=== PATIENT | female | born 1995 | race African-American/Black ===

== ENCOUNTER 2020-09-25 18:27 | Emergency (ER) | payer BC, SELFPAY ==
--- NOTE | ~2020-09-25 | XR_ITS ---
EXAMINATION: XR chest 2V EXAM DATE: 09/25/2020 19:44 INDICATION: Shortness of breath and chest tightness. History of asthma. TECHNIQUE: Frontal and lateral projections of the chest obtained and reviewed. There is no prior lawrence dy for comparison. FINDINGS: Mild hyperinflation. The lungs are clear. There are no pleural effusions. The cardiomedi astinal silhouette is within normal limits. There is no pneumothorax suspected. The bones and soft tissues are unremarkable. IMPRESSION: Mild hyperinflation. Clear lungs. Reviewed, dictated and finalized at location A.
--- NOTE | ~2020-09-25 | NM_ITS ---
EXAMINATION: NM pulmonary perfusion EXAM DATE: 09/25/2020 22:00 INDICATION: chest tightness, rule out PE . TECHNIQUE: A perfusion lung scan was performed. The patient was injected with 3 mCi technetium 99m M AA and imaged. Modified PIOPED 2 criteria used for interpretation of perfusion without ventilation st udy (recent chest x-ray instead for comparison). Correlation is made to Chest x-ray same day. FINDINGS: There is homogeneous perfusion throughout the lungs, no defects. IMPRESSION: Normal perfusion scan. Reviewed, dictated and finalized at location A. IMPRESSION: Normal perfusion scan.
[2020-09-25 18:38] VITALS: BP 134/58; PULSE 70; RESP 16; TEMP 36.6; O2SAT 100
--- NOTE | 2020-09-25 18:39 | PC.NURSE ---
talked to ob charge Lakisha. asked us to hydrate pt and keep them posted if abd pain increase in intensity or frequency. may be able to come monitor pt in ed or we can send pt to their dept s/p our evaluation.
--- NOTE | 2020-09-25 18:43 | ECG_ITS ---
Measurements Intervals [place] Rate: 62 P: 37 OR: 124 QRS: 56 QRSD: 81 T: 29 QT: 375 QTc: 383 Interpretive Statements SINUS RHYTHM NORMAL ECG Electronically Signed On 09-26-2020 6:28:11 CDT by Saul Jay D.O.
[2020-09-25 19:00] LABS: Basophils Percent Auto 0.3 % (0.2-1.2); Eosinophils Absolute Auto 0.1 K/mm3 (0-0.3); Immature Granulocyte Absolute 0.04 K/mm3 (0.00-0.031); Immature Granulocyte Percent A 0.7 % (0-0.5); Lymphocytes Percent Auto 27.7 % (18.3-44.2); Mean Corpuscular HGB Conc 34.3 g/dl (32-36); Mean Corpuscular Hemoglobin 31.6 pg (26-34); Mean Corpuscular Volume 92.1 fl (80-100); Mean Platelet Volume 9.6 fl (7.4-10.4); Monocytes Absolute Auto 0.5 K/mm3 (0.1-0.6); Monocytes Percent Auto 7.7 % (2.6-8.5); Neutrophils Absolute Auto 3.8 K/mm3 (1.3-6.7); Neutrophils Percent Auto 62.6 % (45.5-73.1); Platelet Count Result 275 k/mm3 (150-375); Red Cell Distribution Width 11.7 % (11.5-14.5); White Blood Count 6.1 K/mm3 (4.5-10.0)
[2020-09-25 19:05] VITALS: PULSE 90; RESP 20; O2SAT 100
[2020-09-25 19:07] LABS: Anion Gap 8 mmol/L (8-16); Blood Urea Nitrogen 9 mg/dL (7-17); Calcium 9.4 mg/dL (8.4-10.2); Carbon Dioxide 22 mmol/L (22-30); Chloride 105 mmol/L (98-107); Estimated CRCL calculation 121 ml/min; Estimated Glomerular Filt Rate > 60; Glucose 90 mg/dL (65-105); Potassium 3.7 mmol/L (3.4-5.0); Sodium 135 mmol/L (137-145)
[2020-09-25 19:15] VITALS: PULSE 66; PULSE 71; RESP 18; O2SAT 100
[2020-09-25 19:19] LABS: Troponin I < 0.012 ng/mL (0.000-0.034)
--- NOTE | 2020-09-25 19:32 | ED.CHESTPAIN ---
HPI - Chest Pain General Chief Complaint: Chest Pain Stated Complaint: 30 weeks /abd cramping/sob Time Seen by Provider: 09/25/20 19:01 Source: patient and RN notes reviewed Mode of arrival: ambulatory Limitations: no limitations History of Present Illness HPI narrative: This is a 25 year old female approximately 30 weeks GA who presents for evaluation of chest tightness and shortness of breath. She states last night she developed midsternal chest tightness. Her chest tightness has continue today, and she has intermittent shortness of breath. She describes her shortness of breath as the need to take a deep breathing occasionally. She thinks her tightness is likely due to news that she received yesterday while getting her fetus evaluation. She was told that her baby is underweight and that has her concerned. She also reports intermittent left upper and right lower abdominal pain that last 2 minutes She no longer has abdominal pain. She denies fever, chills, cough, URI symptom, leg swelling calf pain. She denies history PE, DVT as well. Related Data Home Medications Medication Instructions Recorded Confirmed prenat.vits,aamir,aqi-opsv-olkno 1 tablet PO DAILY 08/16/20 Allergies Allergy/AdvReac Type Severity Reaction Status Date / Time No Known Allergies Allergy Verified 09/25/20 21:14 Review of Systems Review of Systems: All systems reviewed & are unremarkable except as noted in HPI and below PMFSH Past Medical History Medical History Asthma last attack age 18, no hospitalizations or intubations Family History Family History Mother Asthma Sibling Asthma Grandparent Asthma Social History Social History Smoking status: Never smoker Alcohol intake: former Substance use: never Exam Const: General: no acute distress and alert Orientation/consciousness: patient oriented x3 Eyes: EOM: EOMs intact bilaterally Chest: Chest palpation & inspection: normal inspection of the chest Resp: Effort & Inspection: normal respiratory effort and no retractions Auscultation: clear to auscultation bilaterally Cardio: Rate: regular rate Rhythm: regular rhythm Heart sounds: no murmurs GI: GI Palp: Yes Soft to palpation, No Tenderness to palpation present (GI) and No Guarding due to palpation present (GI) Auscultation: normal bowel sounds Skin: General skin exam: normal color Rashes: no rashes Neuro: General: patient oriented x3, moves all extremities and CN's II-XI intact bilaterally Psych: Mental Status: mental status grossly normal Affect: normal affect Course Reevaluation(s) Reevaluation #1: Patient has been resting in ER comfortable. She has not complained of abdominal pain. She was given 1 L IVF. Her labs are unremarkable. I spoke with Dr. Maria who states patient can follow up in clinic tomorrow afternoon. I think her chest tightness and shortness of breath may be related to anxiety. She will be started on antibiotics for abnormal urinalysis Date: 09/25/20 Time: 22:30 Vital Signs Vital signs: Vital Signs Temperature 98 F 09/25/20 18:38 Pulse Rate 70 09/25/20 18:38 Respiratory Rate 16 09/25/20 18:38 Blood Pressure 134/58 L 09/25/20 18:38 Pulse Oximetry 100 09/25/20 18:38 Temperature 98 F 09/25/20 18:38 Pulse Rate 60 09/25/20 22:46 Respiratory Rate 18 09/25/20 22:46 Blood Pressure 117/67 09/25/20 22:46 Pulse Oximetry 100 09/25/20 22:46 MDM - Chest Pain Medical Records Data Attestation: I reviewed the patient's medical records. Lab Data Attestation: I reviewed the patient's lab results. Result diagrams: 09/25/20 18:51 09/25/20 18:51 Labs: Lab Results 09/25/20 09/25/20 09/25/20 Range/Units 18:49 18:50 18:51 WB
[2020-09-25 19:52] LABS: Alanine Aminotransferase 17 U/L (4-35); Albumin Level 3.9 g/dL (3.5-5.1); Alkaline Phosphatase 109 U/L (38-126); Aspartate Amino Transferase 31 U/L (14-36); Bilirubin,Total 0.6 mg/dL (0.2-1.3); Lipase 77 U/L (23-300)
[2020-09-25 20:01] LABS: Prothrombin Time 13.2 Seconds (11.1-14.7)
[2020-09-25 20:02] LABS: Partial Thromboplastin Time 29.4 SECONDS (22.3-36.8)
[2020-09-25 20:20] LABS: D Dimer 1.12 ug/mL (<0.48)
[2020-09-25] MEDS: LACTATED RINGERS 1,000 ML 999 ML IV CONT (21:12)
[2020-09-25 21:14] VITALS: BP 105/63; PULSE 62; RESP 19; O2SAT 100
[2020-09-25 21:46] LABS: Add Urine Microscopic? YES; Appearance Urine Cloudy (Clear); Bacteria Urine Trace /hpf; Bilirubin Urine Negative (Negative); Blood Urine Negative (Negative); Color Urine Yellow (Yellow); Glucose Urine UA Negative (Negative); Ketones Urine Negative (Negative); Leukocyte Esterase Ur 2+ LEU/UL (Negative); Mucus Urine Rare /lpf; Nitrate Urine Negative (Negative); Protein Urine Negative (Negative); RBC Urine 0-2 /hpf (0-2); Specific Grav Ur 1.025 (1.001-1.035); Squamous Epithelial Cell Urine Moderate /hpf (Few); Urobilinogen Urine Negative mg/dL (<2.0); WBC Urine 16-20 /hpf
[2020-09-25 22:33] LABS: Troponin I < 0.012 ng/mL (0.000-0.034)
[2020-09-25 22:46] VITALS: BP 117/67; PULSE 60; RESP 18; O2SAT 100
== END 2020-09-25 22:46 | disposition home or self-care (01) ==
PROVIDERS: Emergency Medicine; Emergency Provider General Practice
DX: O23.43 Unspecified infection of urinary tract in pregnancy, third trimester (principal); Z3A.30 30 weeks gestation of pregnancy; O26.893 Other specified pregnancy related conditions, third trimester; R07.9 Chest pain, unspecified; R10.9 Unspecified abdominal pain
CPT/HCPCS: 36415; 71046; 78580; 80048; 80076; 81001; 83690; 84484; 85025; 85380; 85610; 85730; 87086; 93005; 96360; 99284; A9540; J7120

== ENCOUNTER 2020-10-13 10:28 | Outpatient (CLI) | payer BC, SELFPAY ==
[2020-10-13 12:08] LABS: Basophils Percent Auto 0.2 % (0.2-1.2); Eosinophils Absolute Auto 0.1 K/mm3 (0-0.3); Hematocrit 34.6 % (37.0-47.0); Hemoglobin 11.6 g/dL (12.0-15.0); Immature Granulocyte Absolute 0.04 K/mm3 (0.00-0.031); Immature Granulocyte Percent A 0.6 % (0-0.5); Lymphocytes Absolute Auto 1.29 K/mm3 (0.9-3.2); Lymphocytes Percent Auto 20.9 % (18.3-44.2); Mean Corpuscular HGB Conc 33.5 g/dl (32-36); Mean Corpuscular Hemoglobin 31.4 pg (26-34); Mean Corpuscular Volume 93.5 fl (80-100); Mean Platelet Volume 9.7 fl (7.4-10.4); Monocytes Absolute Auto 0.4 K/mm3 (0.1-0.6); Monocytes Percent Auto 6.5 % (2.6-8.5); Neutrophils Absolute Auto 4.4 K/mm3 (1.3-6.7); Neutrophils Percent Auto 70.8 % (45.5-73.1); Platelet Count Result 247 k/mm3 (150-375); Red Cell Distribution Width 11.8 % (11.5-14.5); White Blood Count 6.2 K/mm3 (4.5-10.0)
[2020-10-13 12:15] LABS: Glucose 1 Hour PP 50gm Dose 113 mg/dL
[2020-10-13 13:18] LABS: HIV 1/2 Ab P24 Ag Result Negative (Negative)
[2020-10-15 08:05] LABS: Rapid Plasma Reagin Non-Reactive (NonReactive)
== END 2020-10-13 10:29 | disposition home or self-care (01) ==
PROVIDERS: Visit Provider Obstetrics & Gynecology
DX: Z34.90 Encounter for supervision of normal pregnancy, unspecified, unspecified trimester (principal)
CPT/HCPCS: 36415; 82947; 85025; 86592; 86703; 86850; 86900; 86901; G0432

== ENCOUNTER 2020-10-26 12:37 | Outpatient (RCR) | payer BC, SELFPAY ==
[2020-10-25] MEDS: BETAMETHASONE SOD PHOS/ACETATE 30 MG/5 ML VIAL 12 MG IM (12:30)
[2020-10-26] MEDS: BETAMETHASONE SOD PHOS/ACETATE 30 MG/5 ML VIAL 12 MG IM (13:31)
== END 2020-11-06 09:07 | disposition home or self-care (01) ==
LOC: ANHOBOP 12:37
PROVIDERS: Visit Provider Student in an Organized Health Care Education/Training Program
DX: O36.8990 Maternal care for other specified fetal problems, unspecified trimester, not applicable or unspecified (principal); Z3A.00 Weeks of gestation of pregnancy not specified
CPT/HCPCS: 59025; 96372; J0702

== ENCOUNTER 2020-10-26 12:37 | Outpatient (RCR) | payer BC, SELFPAY ==
[2020-10-26 13:41] VITALS: BP 106/63; PULSE 66
== END 2020-11-28 10:05 | disposition home or self-care (01) ==
LOC: ANHOBOP 12:37
PROVIDERS: Visit Provider Student in an Organized Health Care Education/Training Program
DX: O36.5930 Maternal care for other known or suspected poor fetal growth, third trimester, not applicable or unspecified (principal); Z3A.34 34 weeks gestation of pregnancy
CPT/HCPCS: 59025

== ENCOUNTER 2020-10-26 12:37 | Outpatient (RCR) | payer BC, SELFPAY ==
--- NOTE | 2020-10-25 11:00 | OBADM ---
This patient, Linsey Gold, admitted to the OB room for observation. Patient/family oriented to hospital policies and general routines including ID bracelet, bed and alarms, visiting hours, pain management, procedures, bathroom and other care routines, personal items, smoking policy, room service/diet, and visiting hours. Patient/Family are encouraged to report perceived risks to care and to ask questions if they do not understand what they are told or what they should do.
--- NOTE | 2020-10-25 11:36 | PC.NURSE ---
Dr Maria updated on FHt's and no decels noted. Continue to watch patient for a few more hours.
== END 2020-10-29 08:21 | disposition home or self-care (01) ==
LOC: ANHOBOP 12:37
PROVIDERS: Visit Provider Student in an Organized Health Care Education/Training Program
DX: O36.8390 Maternal care for abnormalities of the fetal heart rate or rhythm, unspecified trimester, not applicable or unspecified (principal); Z3A.00 Weeks of gestation of pregnancy not specified
CPT/HCPCS: 99199

== ENCOUNTER 2020-11-05 09:03 | Observation (INO) | payer BC, SELFPAY ==
--- NOTE | 2020-11-05 09:03 | OBADM ---
This patient, Linsey Gold, admitted to the OB room OB Post [facility] for observation. Patient/family oriented to hospital policies and general routines including ID bracelet, bed and alarms, visiting hours, pain management, procedures, bathroom and other care routines, personal items, smoking policy, room service/diet, and visiting hours. Patient/Family are encouraged to report perceived risks to care and to ask questions if they do not understand what they are told or what they should do.
[2020-11-05 09:22] VITALS: BP 114/70; PULSE 79
[2020-11-05 09:23] VITALS: TEMP 36.7
[2020-11-05 09:47] LABS: Add Urine Microscopic? YES; Appearance Urine Cloudy (Clear); Bilirubin Urine Negative (Negative); Blood Urine 1+ (Negative); Color Urine Yellow (Yellow); Glucose Urine UA Negative (Negative); Ketones Urine Negative (Negative); Leukocyte Esterase Ur 3+ LEU/UL (Negative); Mucus Urine Rare /lpf; Nitrate Urine Negative (Negative); Protein Urine Negative (Negative); RBC Urine 0-2 /hpf (0-2); Specific Grav Ur 1.016 (1.001-1.035); Squamous Epithelial Cell Urine Many /hpf (Few); Urobilinogen Urine Negative mg/dL (<2.0); WBC Urine 21-30 /hpf
--- NOTE | 2020-11-05 10:00 | PC.NURSE ---
Updated Dr. Sanz on maternal and assessments. VSS. UA results given, Urine sent for culture. Discharge orders received. Patient to follow-up with Dr. Maria as scheduled.
[2020-11-05 10:10] VITALS: TEMP 36.7
--- NOTE | 2020-11-14 15:07 | P.PNOB_ITS ---
OB - Triage/Final Diagnosis Visit Information Comments/Additional reasons for admission: I have assessed the risk for this patient, Linsey Gold, and determined that she would benefit from observation care. Evaluation Laboratory results: Laboratory Tests 11/05/20 09:35 Urine Color Yellow Urine Appearance Cloudy H Urine pH 6.0 Ur Specific [place] 1.016 Urine Protein Negative Urine Glucose (UA) Negative Urine Ketones Negative Ur Blood (Man) 1+ H Urine Nitrate Negative Urine Bilirubin Negative Urine Urobilinogen Negative Leukocyte Esterase Rfl 3+ H Urine RBC 0-2 Urine WBC 21-30 H Ur Squamous Epith Cells Many H Urine Mucus Rare Final Diagnosis (1) Abdominal pain affecting : Code(s): O26.899 - Other specified related conditions, unspecified trimester; R10.9 - Unspecified abdominal pain Status: Acute
== END 2020-11-05 10:07 | disposition home or self-care (01) ==
PROVIDERS: Admitting Provider Student in an Organized Health Care Education/Training Program; Visit Provider Obstetrics & Gynecology
DX: O26.893 Other specified pregnancy related conditions, third trimester (principal); R10.9 Unspecified abdominal pain; Z3A.35 35 weeks gestation of pregnancy
CPT/HCPCS: 81001; 87086; G0378; G0379

== ENCOUNTER 2020-11-14 08:28 | Outpatient (CLI) | payer BC, SELFPAY ==
[2020-11-14 11:16] LABS: Vitamin D 25 Hydroxy 22.1 ng/mL
[2020-11-14 11:47] LABS: Hepatitis C Virus Antibody Negative (Negative)
== END 2020-11-14 08:29 | disposition home or self-care (01) ==
PROVIDERS: Visit Provider Student in an Organized Health Care Education/Training Program
DX: Z34.90 Encounter for supervision of normal pregnancy, unspecified, unspecified trimester (principal)
CPT/HCPCS: 36415; 82306; 86787; 86803

== ENCOUNTER 2020-11-15 11:04 | Inpatient (IN) | payer BC, SELFPAY ==
[2020-11-15] VITALS (82 sets, daily range): BP systolic 72–142; BP diastolic 46–88; PULSE 50–158; RESP 16–18; TEMP 36.3–37; O2SAT 89–100; BMI 27.5
[2020-11-15] MEDS: LACTATED RINGERS 1,000 ML 125 ML IV CONT ×4 (11:35→19:50)
[2020-11-15 11:37] LABS: Basophils Percent Auto 0.2 % (0.2-1.2); Eosinophils Percent Auto 0.4 % (0-4.4); Hematocrit 37.2 % (37.0-47.0); Hemoglobin 12.8 g/dL (12.0-15.0); Immature Granulocyte Absolute 0.01 K/mm3 (0.00-0.031); Immature Granulocyte Percent A 0.2 % (0-0.5); Lymphocytes Absolute Auto 1.32 K/mm3 (0.9-3.2); Lymphocytes Percent Auto 24.8 % (18.3-44.2); Mean Corpuscular HGB Conc 34.4 g/dl (32-36); Mean Corpuscular Hemoglobin 32.3 pg (26-34); Mean Corpuscular Volume 93.9 fl (80-100); Mean Platelet Volume 9.5 fl (7.4-10.4); Monocytes Absolute Auto 0.4 K/mm3 (0.1-0.6); Monocytes Percent Auto 7.7 % (2.6-8.5); Neutrophils Absolute Auto 3.6 K/mm3 (1.3-6.7); Neutrophils Percent Auto 66.7 % (45.5-73.1); Platelet Count Result 241 k/mm3 (150-375); Red Blood Count 3.96 M/mm3 (4.2-5.4); Red Cell Distribution Width 12.3 % (11.5-14.5); White Blood Count 5.3 K/mm3 (4.5-10.0)
[2020-11-15] MEDS: AMPICILLIN 2 GM/NS 100 ML 2 GM/100 ML BAG IVPB (11:39)
[2020-11-15] MEDS: OXYTOCIN 30 UNITS/NS 500 ML 30 UNITS/500 ML BAG 4 UNITS IV CONT (11:53)
--- NOTE | 2020-11-15 12:04 | LDADM ---
This patient, Linsey Gold, was admitted to Labor/Delivery/Recovery 104 on 11/15/20 at 11:04. Plans for labor, pain management and were discussed with patient. Patient/family oriented to hospital policies and general routines including ID bracelet, bed and alarms, visiting hours, pain management, procedures, bathroom and other care routines, personal items, smoking policy, room service/diet and guest tray routines, infant security routines, and visiting hours. Patient/Family are encouraged to report perceived risks to care and to ask questions if they do not understand what they are told or what they should do. See OBIX for further documentation.
--- NOTE | 2020-11-15 12:07 | PM.IMHP ---
H&P: HPI History of Present Illness Date/Time: 11/15/20 12:07 Patient is a 25yo LMP 03/01/20 currently 37w gestation with ROBERT 12/06/20. Patient is dated by LMP which is consistent with US on 05/22/20 at 11w gestation. Patient has been monitored for IUGR for past several weeks. Most recent growth scan from 11/12/20 showed EFW 3%. During testing today, a nonreactive NST was noted and patient was sent by [facility] for delivery. Patient reports feeling well today. Denies any vaginal bleeding, leakage of fluid, or contractions. Reports good movement. Chief Complaint: Induction of labor Intrauterine growth restriction GBS positive Review of Systems Review of Systems: All systems reviewed & are unremarkable except as noted in HPI and below Constitutional: Constitutional: Reports as per HPI, Reports no additional constitutional complaints, Denies chills, Denies fever(s), Denies headache(s) and Denies night sweats Eyes: Eyes: Reports as per HPI and Reports no additional eye complaints ENT: Reports system reviewed and no additional complaints, except as documented, Reports as per HPI, Reports Normal hearing present and Denies headache(s) Cardiovascular: Cardiovascular: Reports as per HPI, Reports no additional cardiovascular complaints, Denies chest pain and Denies dyspnea Respiratory: Respiratory: Reports as per HPI, Reports no additional respiratory complaints, Denies cough and Denies dyspnea Gastrointestinal: Gastrointestinal: Reports as per HPI, Reports no additional gastrointestinal complaints, Denies abdominal pain, Denies change in bowel habits, Denies change in stool character, Denies nausea and Denies vomiting Genitourinary: Genitourinary: Reports no additional female genitourinary complaints, Reports as per HPI, Denies abnormal vaginal bleeding, Denies genital lesions, Denies hot flashes, Denies dyspareunia, Denies pelvic pain, Denies sexual dysfunction, Denies urinary incontinence, Denies vaginal discharge, Denies vaginal dryness and Denies vaginal odor Musculoskeletal: Musculoskeletal: Reports no additional musculoskeletal complaints and Reports as per HPI Integumentary/Breasts: Skin/Breast: Reports system reviewed and no additional complaints, except as docu, Reports as per HPI, Denies breast pain and Denies nipple discharge Neurologic: Reports system reviewed and no additional complaints, except as documented, Reports as per HPI, Reports Normal hearing present and Denies headache(s) Psychiatric: Psychiatric: Reports no additional psychiatric complaints, Reports as per HPI, Denies anxiety and Denies depression Endocrine: Endocrine: Reports no additional endocrine complaints and Reports as per HPI Hematologic/Lymphatic: Hematologic/Lymphatic: Reports no additional hematologic/lymphatic complaints and Reports as per HPI Allergic/Immunologic: Allergic/Immunologic: Reports no additional allergic/immunologic complaints and Reports as per HPI PMFSH Past Medical History Medical History Asthma last attack age 18, no hospitalizations or intubations Family History Family History Mother Asthma Hypertension Sibling Asthma Grandparent Asthma Hypertension Social History Social History Smoking status: Never smoker Second hand tobacco smoke exposure: No Alcohol intake: former Substance use: never Spiritual care concerns: No Meds Home Medications and Allergies Home Medications Medication Instructions Recorded Confirmed Type prenat.vits,aamir,qur-wjcd-omxab 1 tablet PO DAILY 08/16/20 11/15/20 History Allergies Allergy/AdvReac Type Severity Reaction Status Date / Time No Known Allergies Allergy Verified 11/15/20 09:28 Vital Signs Vital Signs - 24 hr 11/15/20 11:23 11/15/20 11:30 11/15/20 11:45 Pulse Rate 110 H 117 H 94 Blood Press
--- NOTE | 2020-11-15 12:10 | WPDANESEPP ---
Anes - Eval Pre Procedure Date/Time: 11/15/20 12:10 Pre Op Diagnosis: iol Patient Data Age: 25 Gender: F Height: Weight: Last Vital Signs Pulse 82 11/15/20 12:00 BP 134/73 11/15/20 12:00 Allergies Allergy/AdvReac Type Severity Reaction Status Date / Time No Known Allergies Allergy Verified 11/15/20 09:28 Home Medications Medication Instructions Recorded Confirmed Type prenat.vits,aamir,qoa-esyk-bemhe 1 tablet PO DAILY 08/16/20 11/15/20 History Laboratory Tests 11/15/20 11/15/20 11:29 11:29 WBC 5.3 K/mm3 K/mm3 (4.5-10.0) RBC 3.96 M/mm3 L M/mm3 (4.2-5.4) Hgb 12.8 g/dL g/dL (12.0-15.0) Hct 37.2 % % (37.0-47.0) MCV 93.9 fl fl (80-100) MCH 32.3 pg pg (26-34) MCHC 34.4 g/dl g/dl (32-36) RDW 12.3 % % (11.5-14.5) Plt Count 241 k/mm3 k/mm3 (150-375) MPV 9.5 fl fl (7.4-10.4) Immature Gran % (Auto) 0.2 % % (0-0.5) Neut % (Auto) 66.7 % % (45.5-73.1) Lymph % (Auto) 24.8 % % (18.3-44.2) [place] % (Auto) 7.7 % % (2.6-8.5) Eos % (Auto) 0.4 % % (0-4.4) Baso % (Auto) 0.2 % % (0.2-1.2) Lymph # (Auto) 1.32 K/mm3 K/mm3 (0.9-3.2) [place] # (Auto) 0.4 K/mm3 K/mm3 (0.1-0.6) Eos # (Auto) 0.0 K/mm3 K/mm3 (0-0.3) Baso # (Auto) 0.0 K/mm3 K/mm3 (0.0-0.1) Abs Immat Gran (auto) 0.01 K/mm3 K/mm3 (0.00-0.031) Absolute Neuts (auto) 3.6 K/mm3 K/mm3 (1.3-6.7) Absolute Nucleated RBC 0.0 K/mm3 K/mm3 (0.0-0.012) Nucleated RBC % 0.0 % % (0.0-0.2) RPR Pending Patient hx anesthesia problems: none Family hx anesthesia problems: none PMFSH Past Medical History Medical History Asthma last attack age 18, no hospitalizations or intubations Family History Family History Mother Asthma Hypertension Sibling Asthma Grandparent Asthma Hypertension Social History Social History Smoking status: Never smoker Alcohol intake: former Substance use: never Spiritual care concerns: No Exam Day of Procedure 11/15/20 12:10 Patient weight: normal Heart: regular rate and rhythm Lungs: normal air movement Airway: Mallampati scale Neurological: alert and oriented
--- NOTE | 2020-11-15 12:13 | WPDHPUPDATE1 ---
History and Physical Update Update Date/Time: 11/15/20 12:13 History and Physical has been reviewed, including an updated exam of the patient. There are NO changes in the patient's condition. Risks, benefits, and alternatives have been discussed and questions answered. Patient agrees to proceed with procedure.
[2020-11-15] MEDS: AMPICILLIN 1 GM/NS 50 ML 1 GM/50 ML BAG IVPB ×2 (16:00→19:50)
--- NOTE | 2020-11-15 20:20 | PM.OBPRVD ---
OB - Delivery Note Procedure Delivery date: 11/15/20 Procedure: The patient is a 25-year-old now who presented to labor and delivery at 37 weeks gestation for induction of labor secondary to intrauterine growth restriction and nonreassuring NST. Antibiotics were started for GBS prophylaxis. Induction was started with pitocin. Pitocin was titrated throughout the morning and afternoon. Artificial rupture membranes was performed. Clear amniotic fluid was noted. Patient became uncomfortable and requested an epidural for pain management which was placed without difficulty. Patient continued to make cervical change and was noted to be fully dilated at 7:40 p.m. Patient was prepped and draped for delivery. Patient was encouraged to push and found to be pushing well. At 8:02 p.m., patient delivered head atraumatically and without difficulty in MARIANNE presentation. Occiput restituted to maternal left side. With subsequent push, the 's neck, shoulders, and rest of body delivered without difficulty. 's nose and mouth were suctioned with bulb suction. Delayed cord clamping was performed for approximately 60 seconds. Cord was clamped and cut. A segment of cord was collected for cord gases. Cord blood was collected. The placenta was delivered spontaneously and intact. Uterine fundus was noted to be firm with massage. On inspection, a left periurethral laceration as well as a superficial first-degree perineal laceration were noted. These lacerations were repaired with 3-0 Vicryl in the usual fashion. Excellent hemostasis was noted. Estimated blood loss for entire delivery was 150 cc. Infant was live born female , Apgars 8 and 9, weight pending. Both mother and baby doing well at end of delivery. events: Labor Induction Intrapartal events: None Induction method: per pitocin protocol Delivery augmentation: rupture of membranes Delivery monitor: external FHT and external uterine Route of delivery: Laceration Description: Periurethral (left) and Perineal - 1st Degree Delivery repair: vicryl (3-0) Specimen: Yes (placenta and cord, cord blood and cord gases) Quantitative Blood Loss (ml): 150 Anesthesia type: Epidural Disposition: floor Complications: No immediate complications [place] Baby Date of : 11/15/20 Time of : 20:02 Weeks of gestation at delivery: 37 gender: Female presentation: vertex position: Left Occiput Anterior Placenta delivery description: Spontaneous cord vessel description: 3 Vessels, Clamped/Cut and Delayed Cord Clamping score one minute: 8 score five minutes: 9
[2020-11-15] MEDS: OXYTOCIN 30 UNITS/NS 500 ML 30 UNITS/500 ML BAG 125 UNITS IV CONT (20:48)
[2020-11-15] MEDS: IBUPROFEN 600 MG TABLET PO (22:20)
[2020-11-15] MEDS: WITCH HAZEL 40 PADS 1 PAD TOPICAL (22:22)
[2020-11-15] MEDS: BENZOCAINE 20% AER SPR (*SP) 56 GM CAN 1 SPRAY TOPICAL (22:22)
[2020-11-16] MEDS: ACETAMINOPHEN 325 MG TABLET 650 MG PO ×2 (03:31→20:32)
[2020-11-16 05:20] LABS: Hemoglobin 10.8 g/dL (12.0-15.0)
[2020-11-16 08:00] VITALS: BP 118/49; BP 135/79; PULSE 62; RESP 18; TEMP 36.7
[2020-11-16] MEDS: MULTIVIT/MIN/PREN/FOL AC/IRON TABLET 1 TAB PO (08:32)
[2020-11-16] MEDS: IBUPROFEN 600 MG TABLET PO ×2 (08:32→16:19)
[2020-11-16] MEDS: DOCUSATE SODIUM 100 MG CAPSULE PO ×2 (08:32→16:19)
[2020-11-16] MEDS: LANOLIN (LANSINOH) 7.5 GM CREAM 1 APPLIC TOPICAL (08:33)
[2020-11-16 09:47] LABS: Rapid Plasma Reagin Non-Reactive (NonReactive)
--- NOTE | 2020-11-16 10:04 | PM.OBPNVD ---
OB - PN: Subj Subjective Date/time seen: 11/16/20 10:04 Patient doing well. Minimal pain well controlled with medication. Minimal lochia. Ambulating without difficulty. OB - PN: Obj Data Labs CBC & Chem 7: 11/16/20 03:35 Labs: Laboratory Results - last 24 hr 11/15/20 11/15/20 11/15/20 11:29 11:29 11:29 WBC 5.3 RBC 3.96 L Hgb 12.8 Hct 37.2 MCV 93.9 MCH 32.3 MCHC 34.4 RDW 12.3 Plt Count 241 MPV 9.5 Immature Gran % (Auto) 0.2 Neut % (Auto) 66.7 Lymph % (Auto) 24.8 [place] % (Auto) 7.7 Eos % (Auto) 0.4 Baso % (Auto) 0.2 Lymph # (Auto) 1.32 [place] # (Auto) 0.4 Eos # (Auto) 0.0 Baso # (Auto) 0.0 Abs Immat Gran (auto) 0.01 Absolute Neuts (auto) 3.6 Absolute Nucleated RBC 0.0 Nucleated RBC % 0.0 RPR Non-reactive Blood Type O Positive Antibody Screen Negative 11/16/20 03:35 WBC RBC Hgb 10.8 L Hct 31.0 L MCV MCH MCHC RDW Plt Count MPV Immature Gran % (Auto) Neut % (Auto) Lymph % (Auto) [place] % (Auto) Eos % (Auto) Baso % (Auto) Lymph # (Auto) [place] # (Auto) Eos # (Auto) Baso # (Auto) Abs Immat Gran (auto) Absolute Neuts (auto) Absolute Nucleated RBC Nucleated RBC % RPR Blood Type Antibody Screen OB - PN A/P Assessment and Plan (1) Normal spontaneous vaginal delivery: Code(s): O80 - Encounter for full-term uncomplicated delivery Status: Acute Assessment and Plan: PPD#1 doing well continue routine care anticipate dc home tomorrow Time Spent With Patient Time: Total time spent is greater than 50% in coordination of care (as documented) at patient's floor/unit and/or counseling patient: Exam Const: General: cooperative, healthy appearing, comfortable and no acute distress GI: Inspection: non-distended GI Palp: Yes Soft to palpation and No Tenderness to palpation present (GI) Other: fundus firm below umbilicus Extrem: Right lower extremity: no edema Left lower extremity: no edema Other: no calf tenderness
--- NOTE | 2020-11-16 11:00 | WPDANLDPN2 ---
Anes-Prog Note L&D Date/Time: 11/16/20 11:00 Comfortable throughout: labor and delivery Neuraxial method: epidural Epidural/Spinal procedure site: clean & non-tender Neuro status: Neuro function grossly intact. Cardiovascular status: normal Respiratory status: normal Airway patency: baseline Mental status: baseline Post-Op hydration status: normal Vital Signs: Last Vital Signs Temp 36.7 C 11/16/20 08:00 Pulse 62 11/16/20 08:00 Resp 18 11/16/20 08:00 BP 118/49 L 11/16/20 08:00 Pulse Ox 100 11/15/20 20:01 Pain score (VAS): no c/o pain I/O: Intake & Output 11/15/20 11/16/20 11/16/20 23:59 07:59 15:59 Intake Total 2050 Output Total 350 290 Balance 1700 -290 Post-procedural complaints: none Patient feedback: Patient satisfied with anesthetic care.
--- NOTE | 2020-11-16 11:30 | PC.NURSE ---
Addendum entered by Sowmya Flaherty RN 11/16/20 11:36: Assessment done at 1055 with call to MD following. Original Note: Consulted with patient, she voices concern with feeding on left breast due to crusty fluid noted in the mornings that she thinks is coming from the old nipple piercing hole. Mom states she removed her piercings in April. Hand expression done to assess breast. Colostrum noted on surface of nipple and white substance noted on the left of nipple. White substance is the amount and consistency of the pus coming from a pimple. Upon further investigation mom reports it to have a foul smell. given report and will come assess patient in an hour or so. Mom instructed not to feed infant on the left side or to feed any pumped milk from that side until more assessment is done by MD. Mother states understanding. Breast pump provided due to maternal request. Instructions given on breast pump care and usage, pumping schedule, nipple care, and collection and storage of breast milk. Encouraged [id number], breast massage and manual expression to stimulate supply. Pumping log provided and reviewed. Assessed patient for correct flange size, placement and draw. Patient verbalizes and demonstrates understanding of instructions.
[2020-11-16 12:00] VITALS: BP 116/54; BP 121/67; PULSE 58; PULSE 78; RESP 18; RESP 20; TEMP 36.7; TEMP 36.9; O2SAT 98
[2020-11-16 20:05] VITALS: BP 120/71; PULSE 70; RESP 16; TEMP 36.6
[2020-11-17] MEDS: IBUPROFEN 600 MG TABLET PO ×2 (06:05→15:28)
[2020-11-17 09:45] VITALS: BP 118/72; PULSE 67; PULSE 70; RESP 16; RESP 20; TEMP 36.7; O2SAT 100; O2SAT 98
--- NOTE | 2020-11-17 10:08 | P.PNOB_ITS ---
OB - PN: Subj Subjective Date/time seen: 11/17/20 10:08 Patient doing well. Minimal pain well controlled with medication. Minimal lochia. Ambulating without difficulty. Patient with minimal amount of purulent nipple discharge (evaluated yesterday). Noticed several months ago. s/p nipple piercing. OB - PN: Obj Data Labs CBC & Chem 7: 11/16/20 03:35 OB - PN A/P Assessment and Plan (1) Normal spontaneous vaginal delivery: Code(s): O80 - Encounter for full-term uncomplicated delivery Status: Acute Assessment and Plan: PPD#2 doing well dc home in stable condition emergency precautions reviewed f/u in office in 4-6 weeks (2) Nipple discharge: Code(s): N64.52 - Nipple discharge Status: Acute Assessment and Plan: present for several months pt first reported symptoms yesterday likely tract due to nipple piercing no evidence of infection will obtain breast US and refer to breast surgeon advised to continue pumping and dumping for now Time Spent With Patient Time: Total time spent is greater than 50% in coordination of care (as documented) at patient's floor/unit and/or counseling patient: Exam Const: General: cooperative, healthy appearing, comfortable and no acute d istress Chest: Other: pinpoint purulent discharge noted out side of nipple with firm expression GI: Inspection: non-distended GI Palp: Yes Soft to palpation and No Tenderness to palpation present (GI) Other: fundus firm below umbilicus Extrem: Right lower extremity: no edema Left lower extremity: no edema Other: no calf tenderness
--- NOTE | 2020-11-17 10:27 | P.DS_ITS ---
DS: Admitting Diagnosis Admitting Diagnosis Intrauterine growth restriction OB - DS: Summary OB Procedures : None OB Procedures Intrapartum: Spontaneous Vag Delivery OB Procedures: : None Time Spent with Patient Time attestation: Total time spent providing and/or coordinating discharge services: DS: Data Data Completed and Pending Pending studies at discharge: Pending at discharge 11/15/20 22:07 Surgical [PTH] Routine Discharge Plan Discharge Attending physician on discharge: Rosaura Maria Discharging Clinician: Rosaura Maria Anticipated Discharge Date/Time: 11/17/20 10:27 Patient Disposition: Home, Self-Care Activity: as tolerated and pelvic rest Diet: regular Discharge Instructions: Call office ([phone]) to schedule a visit in 4-6 weeks. You may take Ibuprofen 600mg every 6 hours as needed for pain. You may also alte rnate with Tylenol (Acetaminophen) 1000mg (2 extra strength tablets) every 6 hours if needed. Pain medication may make you constipated. It may be helpful to take an lbtb-xcz-spvyafs stool softener, such as Colace and/or Senokot, along with the pain medication to help lessen constipation. Call office or go to ED for pain not controlled with medication, headache, chest pain, shortness of breath, fever, chills, persistent nausea or vomiting, severe abdominal pain, heavy vaginal bleeding >2 pads/hour, foul vaginal discharge or odor, or problems with your breasts. Patient Instructions: Antibiotic Form Stand Alone Forms: General Discharge Information Follow-up/Referrals: Rosaura Maria MD [Physician] - Discharge Medications: Continued KPN Tablet 1 tablet PO DAILY RF: 0 Date of admission: 11/15/20 11:04 Primary Care Provider: PHYSICIAN,[employer] CLERK Admitting Provider: Rosaura Maria Attending physician on admission: Rosaura Maria Condition: Stable
[2020-11-17] MEDS: HYDROcodone/acetaminophen (*CRX) 5-325 MG TABLET 1 TAB PO (15:29)
== END 2020-11-17 16:35 | disposition home or self-care (01) | DRG 560 ==
LOC: ANHLDR 11:07 → ANHOB2 23:25
PROVIDERS: Admitting Provider Student in an Organized Health Care Education/Training Program; Visit Provider Student in an Organized Health Care Education/Training Program
DX: O36.5930 Maternal care for other known or suspected poor fetal growth, third trimester, not applicable or unspecified (principal); O99.824 Streptococcus B carrier state complicating childbirth; O71.82 Other specified trauma to perineum and vulva; O70.0 First degree perineal laceration during delivery; O62.3 Precipitate labor; O76 Abnormality in fetal heart rate and rhythm complicating labor and delivery; Z3A.37 37 weeks gestation of pregnancy; Z37.0 Single live birth
CPT/HCPCS: 36415; 85014; 85018; 85025; 86592; 86850; 86900; 86901; 88307; A9270; J0290; J2590; J2795; J7120

== ENCOUNTER 2022-04-18 12:24 | Emergency (ER) | payer BC, SELFPAY ==
[2022-04-18 12:40] VITALS: BP 121/71; PULSE 67; RESP 12; TEMP 36.9; O2SAT 100
--- NOTE | 2022-04-18 13:07 | ED.SKABFB ---
HPI - Skin/Abscess/Foreign Bdy General Chief complaint: Urogenital-Female Stated complaint: uti Time Seen by Provider: 04/18/22 13:08 Source: patient and RN notes reviewed Mode of arrival: ambulatory Limitations: no limitations History of Present Illness HPI narrative: 26-year-old female presents since with concern for irritation to her genital area. She reports it feels like there is a ?crack? in her groin area next to her labia. She denies any pain, drainage. She denies any dysuria, urgency, frequency. She denies vaginal discharge. She denies history of herpes. MD complaint: rash Related Data Allergies Allergy/AdvReac Type Severity Reaction Status Date / Time No Known Allergies Allergy Verified 04/18/22 12:36 Review of Systems Review of Systems: CONSTITUTIONAL: Denies malaise, chills, sweats, or fever. CARDIOVASCULAR: Denies chest pain, palpitations, or edema. RESPIRATORY: Denies cough or dyspnea. GASTROINTESTINAL: Denies abdominal pain, nausea, vomiting, diarrhea GENITOURINARY: Denies dysuria, frequency, urgency, suprapubic pressure. Denies flank pain or hematuria. Denies abnormal vaginal discharge SKIN: Reports skin irritation near her labia MUSCULOSKELETAL: Denies back pain or myalgia. All systems reviewed & are unremarkable except as noted in HPI and below PMFSH Past Medical History Medical History Asthma last attack age 18, no hospitalizations or intubations Vaginal delivery 11/15/20 Family History Family History Mother Asthma Hypertension Sibling Asthma Grandparent Asthma Hypertension Social History Social History Smoking status: Never smoker Second hand tobacco smoke exposure: No Alcohol intake: former Substance use: never Spiritual care concerns: No Comments At time of signature, agree with nursing past medical, surgical, social and family history. There is no relevant family history pertinent to the presenting complaint Exam Narrative: GENERAL: Well-appearing, well-nourished, and in no acute distress. HEAD: Normocephalic. EYES: PERRLA, conjunctivae clear. NECK: Supple. No lymphadenopathy CHEST: Clear to auscultation. No respiratory distress. HEART: Regular rate and rhythm. SKIN: Warm, dry. 2 cm x 0.5 cm patch of ear pink papules noted to the left of the labia, nontender, no vesicles noted NEURO: Alert and oriented x3. PSYCH: Normal mood and affect Course Course Emergency Course: Patient is aware of diagnosis, understands and agrees to treatment plan. Anticipatory guidance given. Patient agrees to follow-up as directed and is aware of reasons to seek care at the emergency department. Portions of this record may have been created with voice recognition software Level of Care: Express Care Visit Vital Signs Vital signs: Vital Signs Temperature 98.5 F 04/18/22 12:40 Pulse Rate 67 04/18/22 12:40 Respiratory Rate 12 04/18/22 12:40 Blood Pressure 121/71 04/18/22 12:40 Pulse Oximetry 100 04/18/22 12:40 Oxygen Delivery Room Air 04/18/22 12:40 Temperature 98.5 F 04/18/22 12:40 Pulse Rate 67 04/18/22 12:40 Respiratory Rate 12 04/18/22 12:40 Blood Pressure 121/71 04/18/22 12:40 Pulse Oximetry 100 04/18/22 12:40 Oxygen Delivery Room Air 04/18/22 12:40 Reviewed. MDM - Skin/Abscess/Foreign Bdy MDM Narrative Medical decision making narrative: Does not appear at this time to be erythema multiforme, bullous, SJS, TEN; no evidence at this time to suggest RMSF, endocarditis or Lyme disease; patient looks well, nontoxic and is tolerating oral intake; no neurologic signs or symptoms; no headache, photophobia or neck pain; afebrile; appropriate for initial outpatient treatment; discussed the importance of follow-up, patient agrees; question, viral exanthema, contact
== END 2022-04-18 13:18 | disposition home or self-care (01) ==
PROVIDERS: Emergency Provider Nurse Practitioner
DX: R21 Rash and other nonspecific skin eruption (principal); J45.909 Unspecified asthma, uncomplicated
CPT/HCPCS: 99213; G0463

== ENCOUNTER 2023-01-19 12:46 | Emergency (ER) | payer BC, SELFPAY ==
--- NOTE | 2023-01-19 12:50 | ED.LOWEXIN ---
HPI - Extremity Injury (Lower) General Chief Complaint: Extremity Problem,Nontraumatic Stated Complaint: Left Knee/Foot Pain Time Seen by Provider: 01/19/23 12:55 Source: patient Mode of arrival: ambulatory Limitations: no limitations History of Present Illness HPI Narrative: Patient is a 27-year-old female that reports intermittent left knee and medial foot pain for 3 months. Patient states Thursday and worsened over the weekend where was tender to touch her knee. Patient states this morning symptoms have significantly improved. Patient has been taking [id number] pain medication with moderate relief. Patient denies any injury to either area. 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 Patient admits that she does not always wear proper footwear. Patient reports there was mild swelling to knee over the weekend. Denies any swelling to foot. Patient able to ambulate normally with no assistance. Related Data Allergies Allergy/AdvReac Type Severity Reaction Status Date / Time No Known Allergies Allergy Verified 04/18/22 12:36 Review of Systems Review of Systems: All systems reviewed & are unremarkable except as noted in HPI and below Constitutional: Constitutional: Denies body ache(s), Denies chills, Denies fatigue, Denies fever(s), Denies headache(s), Denies malaise and Denies weakness Eyes: Eyes: Denies blurry vision, Denies irritation and Denies loss of vision ENT: Denies otalgia, Denies headache(s), Denies nasal discharge, Denies sinus pain and Denies sore throat Cardiovascular: Cardiovascular: Denies chest pain, Denies irregular heart rhythm and Denies dyspnea Respiratory: Respiratory: Denies dyspnea Gastrointestinal: Gastrointestinal: Denies abdominal pain, Denies melena, Denies hematochezia, Denies diarrhea, Denies nausea and Denies vomiting Musculoskeletal: Musculoskeletal: Denies back pain, Denies myalgias, Reports arthralgias and Reports joint swelling Integumentary/Breasts: Skin/Breast: Denies pruritus and Denies rash Neurologic: Denies headache(s), Denies loss of vision and Denies weakness Psychiatric: Psychiatric: Reports no additional psychiatric complaints Endocrine: Endocrine: Denies fatigue PMFSH Past Medical History Medical History Asthma last attack age 18, no hospitalizations or intubations Vaginal delivery 11/15/20 Family History Family History Mother Asthma Hypertension Sibling Asthma Grandparent Asthma Hypertension Social History Social History Smoking status: Never smoker Second hand tobacco smoke exposure: No Alcohol intake: former Substance use: never Spiritual care concerns: No Comments At time of signature, agree with nursing past medical, surgical, social and family history. There is no relevant family history pertinent to the presenting complaint. Exam Const: General: cooperative, healthy appearing, comfortable, no acute distress and well nourished Nutritional Appearance: well nourished Orientation/consciousness: patient oriented x3 Limitations: no limitations HENMT: Head: normal to inspection, normocephalic and atraumatic Ears: hearing grossly normal bilaterally and external ears normal Face/Nose/Sinus: Normal external nose present, normal facial exam and face symmetric Face and sinus: normal facial exam and face symmetric Mouth: Yes lip normal Eyes: General: appearance normal, both eyes and all related structures Alignment and Position: alignment normal and position normal Periorbital: periorbital findings normal Eyelids: eyelids normal Pupils: Equal, round and reactive pupils present EOM: EOMs intact bilaterally Neck: Neck: normal visual inspection, full ROM and supple Chest: Chest palpation & inspection: normal inspection of the chest Resp: Ef
[2023-01-19 12:53] VITALS: BP 117/66; PULSE 83; RESP 16; TEMP 36.8; O2SAT 100
== END 2023-01-19 13:06 | disposition home or self-care (01) ==
PROVIDERS: Emergency Provider Nurse Practitioner Family
DX: S86.912A Strain of unspecified muscle(s) and tendon(s) at lower leg level, left leg, initial encounter (principal); X58.XXXA Exposure to other specified factors, initial encounter
CPT/HCPCS: 99212; G0463

== ENCOUNTER 2024-04-11 10:32 | Emergency (ER) | payer OTHER, SELFPAY ==
[2024-04-11 10:37] VITALS: BP 141/46; PULSE 64; RESP 16; TEMP 36.8; O2SAT 100
[2024-04-11 11:11] VITALS: BP 120/76
--- NOTE | 2024-04-11 11:13 | ED_ITS ---
HPI - URI/Sore Throat General Chief Complaint: Upper Respiratory Infection Stated Complaint: Sinus/Ears Irritation Time Seen by Provider: 04/11/24 10:55 Source: patient and RN notes reviewed Mode of arrival: ambulatory Limitations: no limitations History of Present Illness HPI Narrative: Patient presents today with a 1 week history of nasal congestion, headache, sore throat, with a 4 day history of popping of the left ear, mild dizziness, body aches. She has been taking Claritin,, and Tylenol without much relief and currently rates her pain 8/10. Denies fever or shortness of breath. Denies any known sick contacts. Related Data Allergies Allergy/AdvReac Type Severity Reaction Status Date / Time No Known Allergies Allergy Verified 04/11/24 10:46 Review of Systems Review of Systems: CONSTITUTIONAL: Denies fever, chills, or sweats.+ body aches EYES: Denies visual changes, redness, or discharge. ENT: Denies rhinorrhea. + congestion, sore throat, left ear pain and popping CARDIOVASCULAR: Denies chest pain, palpitations, or edema. RESPIRATORY: Denies cough or dyspnea. GASTROINTESTINAL: Denies abdominal pain, nausea, vomiting, or diarrhea. GENITOURINARY: Denies dysuria or hematuria. SKIN: Denies rash, itching, or wounds. MUSCULOSKELETAL: Denies back pain, joint pain, or myalgia. NEUROLOGIC: Denies numbness, tingling, or weakness.+ headache, dizziness PSYCH: Denies depression or anxiety. [facility] Past Medical History Medical History Vaginal delivery 11/15/20 Asthma last attack age 18, no hospitalizations or intubations Family History Family History Mother Asthma Hypertension Sibling Asthma Grandparent Asthma Hypertension Social History Social History Smoking status: Never smoker Second hand tobacco smoke exposure: No Alcohol intake: former Substance use: never Spiritual care concerns: No Comments At time of signature, I have reviewed and agree with nursing past medical, surgical, social and family history unless otherwise noted. Please see nursing chart for further information. There is no relevant family history pertinent to the presenting complaint Exam Narrative: GENERAL: Well-appearing, well-nourished, and in no acute distress. HEAD: Normocephalic, atraumatic. EYES: EOMI. PERRL. No redness or drainage. Conjunctivae normal. ENT: Mucous membranes pink and moist. Nares congested. No rhinorrhea. Left TM with serous effusion, right TM normal. Throat normal. Uvula midline. NECK: Normal AROM. Supple. No lymphadenopathy. CHEST: No respiratory distress. Clear to auscultation. HEART: Regular rate and rhythm. No murmur appreciated. EXTREMITIES: Normal range of motion. No edema. SKIN: Warm, dry, no rash. Capillary refill normal. Normal skin turgor. NEURO: No focal deficits. Alert and oriented x3. Gait steady. PSYCH: Normal affect. No signs of depression or anxiety. Course Course Level of Care: Express Care Visit Vital Signs Vital signs: Vital Signs Temperature 98.2 F 04/11/24 10:37 Pulse Rate 64 04/11/24 10:37 Respiratory Rate 16 04/11/24 10:37 Blood Pressure 141/46 H 04/11/24 10:37 Pulse Oximetry 100 04/11/24 10:37 Oxygen Delivery Room Air 04/11/24 10:37 Temperature 98.2 F 04/11/24 10:37 Pulse Rate 64 04/11/24 10:37 Respiratory Rate 16 04/11/24 10:37 Blood Pressure 120/76 04/11/24 11:11 Pulse Oximetry 100 04/11/24 10:37 Oxygen Delivery Room Air 04/11/24 10:37 Reviewed MDM - URI/Sore Throat MDM Narrative Medical decision making narrative: Patient declines testing for influenza or COVID. She has been diagnosed with left serous otitis without infection. Remainder of symptoms are likely viral in etiology. Discussed [id number] medication use and duration of illness. Prescription for short course of prednisone sent to pharmacy. Anticipatory guidance given. Differential Diagnosis Differential diagnosis: Likely upper respiratory infection, otitis media, viral infection, influenza and other (Otitis externa, ruptured TM serous otitis, COVID) Critical Care Time Critical Care Time Critical Care Time: No Discharge Plan Discharge Clinical Impression: Viral syndrome Left acute serous otitis media Qualifiers: Recurrence: non-recurrent Qualified Code(s): H65.02 - Acute serous otitis media, left ear Patient Disposition: Home, Self-Care Condition: Stable Instructions: Viral Syndrome (ED), Fluid In The Ear (Serous Otitis Media) (ED) Additional Instructions: Your symptoms are likely due to a viral illness, which is not treated with antibiotics. Virus symptoms can last for up to 7-10 days. Take Tylenol or ibuprofen for pain or fever. Take the prednisone as prescribed. You may also consider some Sudafed and Flonase. Rest and stay hydrated. Follow up with your PCP in 3-4 days if symptoms are not improving. Go to the ER immediately if you develop shortness of breath, difficulty swallowing, or any other concerning symptoms. Your blood pressure was elevated above 120/80 today at Urgent Care. This puts you above the threshold for follow up. Please schedule a followup visit with your personal physician as soon as possible, for further evaluation and treatment. Even blood pressure exceeding 120/80 may indicate pre-hypertension. Patient Language: Sinhala Prescriptions: New prednisone 20 mg tablet 40 mg PO DAILY 5 Days Qty: 10 0RF Follow-up/Referrals: Damir,Beverly Jaime MD [Primary Care Provider] - Stand Alone Forms: Work/School Release IP Time of Disposition: 11:10
== END 2024-04-11 11:17 | disposition home or self-care (01) ==
PROVIDERS: Emergency Provider Nurse Practitioner; PCP Family Medicine
DX: B34.9 Viral infection, unspecified (principal); H65.02 Acute serous otitis media, left ear
CPT/HCPCS: 99213; G0463